=== PATIENT | female | born 1995 | race African-American/Black ===

== ENCOUNTER 2025-01-02 21:54 | Emergency (ER) | payer OTHER ==
[~2025-01-02] VITALS: Ht 157.5 cm; Wt 81.8 kg
[2025-01-02 22:26] VITALS: BP 118/74; PULSE 92; RESP 16; TEMP 98.1; O2SAT 100
[2025-01-02 23:13] LABS: APPEARANCE,URINE CLEAR (CLEAR); GLUCOSE, URINE (UA) NEGATIVE (NEGATIVE); LEUKOCYTE ESTERASE ,URINE NEGATIVE (NEGATIVE); NITRATE,URINE NEGATIVE (NEGATIVE); OCCULT BLOOD,URINE NEGATIVE (NEGATIVE); SPECIFIC GRAVITIY, URINE 1.023 (1.003-1.030)
[2025-01-02 23:37] LABS: SQUAMOUS EPITHELIAL CELL,UR Few /LPF (None Seen)
[2025-01-02] MEDS ORDERED: IBUP-1492 PO (23:43)
[2025-01-02] MEDS ORDERED: METH-659 PO (23:43)
[2025-01-03] MEDS: IBUPROFEN 600 MG TABLET PO ONE (00:11)
[2025-01-03] MEDS: LIDOCAINE 5% TRANSDERMAL PATCH TD ONE (00:12)
== END 2025-01-03 00:22 | disposition home or self-care (01) ==
LOC: EMS 21:54
DX: S29.012A Strain of muscle and tendon of back wall of thorax, initial encounter (principal); S39.012A Strain of muscle, fascia and tendon of lower back, initial encounter; X58.XXXA Exposure to other specified factors, initial encounter; Y93.89 Activity, other specified; Y92.89 Other specified places as the place of occurrence of the external cause; Y99.0 Civilian activity done for income or pay
CPT/HCPCS: 81001; 99284; Z7502; Z7610